=== PATIENT | female | born 1960 | race Caucasian/White ===

== ENCOUNTER 2021-07-04 10:34 | Emergency (ER) | payer OTHER, SELFPAY ==
[2021-07-04 10:36] VITALS: BP 131/75; PULSE 67; RESP 18; TEMP 37.1; O2SAT 98; BMI 24.4
--- NOTE | 2021-07-04 10:42 | [facility].EDGENADL ---
ED Disposition Clinical Impression: Laceration Disposition: Home, Self-Care Condition on Discharge: Good Additional Instructions: Please keep wound clean dry and intact, apply sunscreen to the area to avoid hyperpigmentation, do not submerge in water, although you can shower. Evidence of infection includes redness extending out from the laceration, swelling, with leakage of yellow or green fluid. Sutures should absorb on their own and fall out in approximately 5 to 7 days. Referrals: Provider,Referral, [Primary Care Provider] - - Critical Care Critical Care Time: No Attestation: On , the high probability of a clinically significant, sudden or life threatening deterioration of the following system(s) required my full and direct attention, intervention and personal management. The time I documented below is in addition to time spent performing reported procedures but includes the following listed in this critical care notation. Medical Decision Making - Medical Records Medical records reviewed: Yes: I reviewed the patient's medical records. - [place] Inquiry Pt receiving controlled substance: No Medical Decision Narrative: Patient is a 61-year-old female presents to ED today for further evaluation after falling and hitting her right eyebrow on a door, patient is well-appearing on initial evaluation, no acute distress and vital signs are within normal limits and stable. Patient is well-appearing with no evidence of intracranial trauma, only in the eyebrow laceration of the right eyebrow, we will perform laceration repair on this. Patient requiring no further imaging or laboratory work-up. Laceration has been repaired, patient given laceration repair instructions, including not to submerge in water, keep clean dry and intact, discussed evidence of infection with the patient including erythema, purulence, this wound is of low risk of infection. Given that it is along the eyebrow, patient will follow up with primary care if she has problems with scar, will have them refer to plastic surgery. Patient given return precautions and is verbalized understanding with plan. General Adult HPI - General Stated complaint: ao 07/04 fall, left side lac Time Seen by Provider: 07/04/21 10:42 - History of Present Illness HPI narrative: Patient is a 61-year-old female presents the ED today for further evaluation after falling, patient states that she tripped over something on the floor, and hit her forehead on a door, states that she felt blood trickle down her face looked in the mirror and found that she had a right-sided eyebrow laceration, patient states she did not pass out or lose conscious, patient does not take any blood thinning medications, patient does not have any pain in her neck, has been able to ambulate with no difficulty, endorses no arm or leg pain. [facility] History - Hepatitis A Screen Attestation statement:: This patient has been screened for Hepatitis A risk factors. ROS Obtained: Yes All systems reviewed & no additional complaints - Constitutional Constitutional: Reports system reviewed and no additional complaints, except as docu Physical Exam - General General appearance: alert, in no apparent distress - Head Head exam: normocephalic, normal inspection, other (Linear laceration across the right eyebrow, 2.5 cm) - Eye Eye exam: Present: normal appearance, EOMI - ENT ENT exam: Present: normal exam, normal oropharynx, mucous membranes moist, normal external ear exam - Neck Neck exam: Present: normal inspection, full ROM, trachea midline. Absent: meningismus, lymphadenopathy - Chest Chest inspection: Present: normal inspection, symmetric chest wall rise. Absent: tenderness - Respiratory Respiratory exam: Absent: respiratory distress, prolonged expiratory phase - Cardiovascular Cardiovascular exam: Present: regular rate, normal rhythm. Absent: JVD - Abdominal Exam Abdominal exam: Present: sof
[2021-07-04 11:13] VITALS: BP 128/74; PULSE 61; RESP 16; TEMP 37.1; O2SAT 97
== END 2021-07-04 11:19 | disposition home or self-care (01) ==
PROVIDERS: Emergency Provider Student in an Organized Health Care Education/Training Program; PCP Pediatrics
DX: S01.111A Laceration without foreign body of right eyelid and periocular area, initial encounter (principal); W01.198A Fall on same level from slipping, tripping and stumbling with subsequent striking against other object, initial encounter; Y92.019 Unspecified place in single-family (private) house as the place of occurrence of the external cause
CPT/HCPCS: 12011; 99282